=== PATIENT | female | born 1955 | race Caucasian/White ===

== ENCOUNTER → 2017-08-15 | Outpatient (CLI) | payer OTHER ==
--- NOTE | 2017-08-15 16:41 | US ---
EXAM DESCRIPTION: Soft Tissue,Extremity CLINICAL HISTORY: SUBCUTANEOUS NODULE COMPARISON: None. TECHNIQUE: 2-D sonography FINDINGS: 4 discrete areas are observed about the right hip by sonography. The first measures 2.8 x 2.1 cm. The second measures 1.2 x 0.96 cm. Third measuring 1.6 x 2.1 cm. The fourth measures 1.1 x 0.93 cm. All appear extremely densely calcified. They may represent foci of myositis ossificans. Plain film radiography would prove useful. IMPRESSION: 4 discrete shadowing areas are observed about the right hip and may have calcification within them. Further evaluation with plain film radiography is recommended. Electronically signed by: Alen Angeles MD 08/15/2017 4:39 PM CDT
== END ==
LOC: US 10:48
PROVIDERS: ATTEND Nurse Practitioner Family
DX: R22.9 Localized swelling, mass and lump, unspecified (principal)

== ENCOUNTER → 2017-08-17 | Outpatient (CLI) | payer OTHER ==
--- NOTE | 2017-08-18 07:57 | RAD ---
Procedure: XR HIP 2 OR MORE VIEWS Exam Date: 08/17/2017 10:10 AM CDT Ordering Provider: Kiley Grissom Clinical Indication: CALCIFICATION AND OSSIFICATION OF MUSCLE UNSP Comparison: None FINDINGS: There is no fracture or dislocation. No significant degenerative changes. Visualized portions of the hemipelvis are normal. There is no lytic or sclerotic lesion. No suspicious calcifications. Impression: 1. Negative exam of the right hip. Electronically signed by: Rakesh Sinclair MD 08/18/2017 7:55 AM CDT
== END ==
LOC: RAD 10:01
PROVIDERS: ATTEND Nurse Practitioner Family
DX: M61.9 Calcification and ossification of muscle, unspecified (principal)